=== PATIENT | male | born 1940 | race Caucasian/White ===

== ENCOUNTER 2021-11-24 19:37 | Inpatient (IN) | payer MEDICARE ==
[~2021-11-24] VITALS: Ht 162.6 cm; Wt 106.6 kg
[2021-11-24] MEDS ORDERED: CYCLOBENZAPRINE 10MG TABLET PO ONE (21:30)
[2021-11-24] MEDS ORDERED: KETOROLAC 15MG/ML VIAL IM ONE (21:30)
[2021-11-25 00:36] LABS: HEMATOCRIT. 38.3 % (42.0-52.0); HEMOGLOBIN. 12.9 g/dL (14.0-18.0); MEAN CORPUSCULAR VOLUME 98.2 fL (80.0-94.0); PLATELET 170 x1000/uL (130-400); RED CELL DISTRIBUTION WIDTH 14.2 % (11.6-14.6)
[2021-11-25 00:46] LABS: CHLORIDE 103 mEq/L (98-107)
[2021-11-25 01:28] LABS: INR 1.1; PROTHROMBIN TIME 11.4 sec (9.6-11.0)
[2021-11-25 05:48] LABS: ATYPICAL LYMPHOCYTES 9; PLATELET ESTIMATE NORMAL
[2021-11-25 07:45] VITALS: BP 123/55
[2021-11-25 08:00] VITALS: BP_SYST 108; BP_SYST 121; BP_DIAS 49; BP_DIAS 65
[2021-11-25 12:00] VITALS: BP 118/66
[2021-11-25] MEDS ORDERED: ONDANSETRON HCL 4MG/2ML INJ IV PRN (12:15)
[2021-11-25] MEDS ORDERED: IPRATROPIUM/ALBUTEROL 0.5-3(2.5)MG/3ML NEB HHN PRN (12:15)
[2021-11-25] MEDS ORDERED: LACTULOSE 20G/30ML UDC PO SCH (12:15)
[2021-11-25] MEDS ORDERED: ACETAMINOPHEN 325MG TABLET PO PRN (12:15)
[2021-11-25] MEDS ORDERED: ENOXAPARIN 40MG/0.4ML SYR SUBCUT SCH ×2 (12:15→13:00)
[2021-11-25] MEDS ORDERED: DEXTROSE 50% WATER 50ML SYRINGE IV PRN (12:30)
[2021-11-25] MEDS: INSULIN LISPRO 100 UNITS/ML SUBCUT SCH ×3 (12:50→21:14)
[2021-11-25 16:00] VITALS: BP 114/78
[2021-11-25] MEDS: BLOOD SUGAR DIAGNOSTIC STRIP TEST SCH ×2 (17:49→20:42)
[2021-11-25 20:00] VITALS: BP 148/49
[2021-11-25] MEDS: ENOXAPARIN 30MG/0.3ML SYR SUBCUT SCH (20:42)
[2021-11-25] MEDS ORDERED: HYDROCODONE/ACETAMINOPHEN 5/325MG TABLET PO PRN (23:30)
[2021-11-25] MEDS ORDERED: NALOXONE HCL 0.4MG/ML VIAL IV PRN (23:30)
[2021-11-25] MEDS ORDERED: TEMAZEPAM 15MG CAPSULE PO PRN (23:30)
[2021-11-26] VITALS: BP 127/44
[2021-11-26 04:04] VITALS: BP 151/48
[2021-11-26] MEDS: BLOOD SUGAR DIAGNOSTIC STRIP TEST SCH ×4 (07:20→21:37)
[2021-11-26 08:00] VITALS: BP 152/54
[2021-11-26] MEDS: ENOXAPARIN 30MG/0.3ML SYR SUBCUT SCH ×2 (08:20→21:02)
[2021-11-26] MEDS: INSULIN LISPRO 100 UNITS/ML SUBCUT SCH ×4 (09:36→21:37)
[2021-11-26 16:00] VITALS: BP 140/65
[2021-11-26] MEDS: HYDROCODONE/ACETAMINOPHEN 10/325MG TABLET PO PRN ×2 (16:54→22:07)
[2021-11-26 18:56] LABS: CLARITY URINE CLEAR (CLEAR); COLOR URINE YELLOW (YELLOW); KETONES URINE NEGATIVE (NEGATIVE); LEUKOCYTE ESTERASE URINE NEGATIVE (NEGATIVE); NITRITE URINE NEGATIVE (NEGATIVE); OCCULT BLOOD URINE NEGATIVE (NEGATIVE); PH URINE 8.5 (4.5-8.0); PROTEIN URINE TRACE (NEGATIVE); SPECIFIC GRAVITY URINE 1.013 (1.005-1.030)
[2021-11-26 19:39] LABS: HEMATOCRIT. 39.1 % (42.0-52.0); HEMOGLOBIN. 13.1 g/dL (14.0-18.0); MEAN CORPUSCULAR HEMOGLOBIN 32.7 pg (28.0-32.0); MEAN CORPUSCULAR VOLUME 97.5 fL (80.0-94.0); MEAN PLATELET VOLUME 9.4 fl (7.4-10.4); PLATELET 190 x1000/uL (130-400); RED BLOOD CELL COUNT 4.01 mill/uL (4.7-6.1); RED CELL DISTRIBUTION WIDTH 14.1 % (11.6-14.6)
[2021-11-26 19:50] LABS: CHLORIDE 98 mEq/L (98-107)
[2021-11-26 20:00] VITALS: BP 148/72
[2021-11-26 20:15] LABS: PLATELET ESTIMATE NORMAL
[2021-11-27] VITALS (7 sets, daily range): BP systolic 140–181; BP diastolic 49–80
[2021-11-27] MEDS: HYDROCODONE/ACETAMINOPHEN 10/325MG TABLET PO PRN ×4 (06:44→23:51)
[2021-11-27] MEDS: BLOOD SUGAR DIAGNOSTIC STRIP TEST SCH ×4 (07:20→21:17)
[2021-11-27] MEDS: ENOXAPARIN 30MG/0.3ML SYR SUBCUT SCH ×2 (09:34→20:59)
[2021-11-27] MEDS: INSULIN LISPRO 100 UNITS/ML SUBCUT SCH ×4 (09:35→21:17)
[2021-11-27] MEDS: LACTULOSE 20G/30ML UDC PO NR ×2 (16:00→20:59)
[2021-11-27] MEDS ORDERED: SIMETHICONE 80MG TABLET CHEW PO PRN (16:00)
[2021-11-27] MEDS ORDERED: HYDRALAZINE 20MG/ML VIAL IV PRN (17:00)
[2021-11-27] MEDS ORDERED: HYDRALAZINE 10 MG in SODIUM CHLORIDE 0.9% 49.5 ML IV PRN (17:00)
[2021-11-28] VITALS: BP 159/60
[2021-11-28 04:00] VITALS: BP 120/79
[2021-11-28] MEDS: BLOOD SUGAR DIAGNOSTIC STRIP TEST SCH (05:28)
[2021-11-28 08:00] VITALS: BP 136/60
[2021-11-28] MEDS: INSULIN LISPRO 100 UNITS/ML SUBCUT SCH (08:36)
[2021-11-28] MEDS: ENOXAPARIN 30MG/0.3ML SYR SUBCUT SCH (08:37)
== END 2021-11-28 11:30 | disposition short-term general hospital (02) | DRG 563 ==
LOC: ER 19:37 → MICUSO 11-25 00:20 → 6EST 11-25 06:47
PROVIDERS: ADMIT Internal Medicine; ATTEND Internal Medicine
DX: S92.331A Displaced fracture of third metatarsal bone, right foot, initial encounter for closed fracture (principal); C91.10 Chronic lymphocytic leukemia of B-cell type not having achieved remission; G95.20 Unspecified cord compression; Z20.822 Contact with and (suspected) exposure to COVID-19; M48.02 Spinal stenosis, cervical region; G89.29 Other chronic pain; E11.9 Type 2 diabetes mellitus without complications; J44.9 Chronic obstructive pulmonary disease, unspecified; M54.30 Sciatica, unspecified side; W18.30XA Fall on same level, unspecified, initial encounter; Y93.89 Activity, other specified; Y92.89 Other specified places as the place of occurrence of the external cause; Y99.8 Other external cause status
CPT/HCPCS: 36415; 72141; 72148; 72190; 72192; 73562; 73630; 80048; 80053; 81003; 82962; 83036; 84484; 85025; 86850; 86900; 87426; 93005; 97162; 99285; J1650; J1815; J1885